=== PATIENT | female | born 1990 | race Caucasian/White ===

== ENCOUNTER 2020-10-15 07:26 | Outpatient (CLI) | payer MEDICAID ==
[2020-10-15 12:31] LABS: BASOPHILS % (AUTO) 0.3 %; EOSINOPHILS # (AUTO) 0.5 10^3/uL (0.0-0.7); EOSINOPHILS % (AUTO) 6.8 %; LYMPHOCYTES # (AUTO) 1.8 10^3/uL (1.5-3.5); LYMPHOCYTES % (AUTO) 26.9 %; MEAN CORPUSCULAR HEMOGLOBIN 28.2 pg (27.0-31.0); MEAN CORPUSCULAR HGB CONC 32.6 g/dL (32.0-36.0); MEAN CORPUSCULAR VOLUME 86.5 fL (81.0-99.0); MEAN PLATELET VOLUME 9.8 fL (7.9-10.8); MONOCYTES # (AUTO) 0.5 10^3/uL (0.0-1.0); MONOCYTES % (AUTO) 7.8 %; NEUTROPHILS % (AUTO) 57.9 %; PLT - PLATELET COUNT 365 10^3/uL (130-450); RED BLOOD COUNT 4.97 10^6/uL (4.20-5.40); RED CELL DISTRIBUTION WIDTH 12.6 % (12.0-15.0); WHITE BLOOD COUNT 6.8 x10^3/uL (4.8-10.8)
[2020-10-15 12:58] LABS: ALBUMIN 4.1 g/dL (3.2-5.5); ALBUMIN/GLOBULIN RATIO 1.5 (1.0-2.2); ALKALINE PHOSPHATASE 64 IU/L (42-121); ALT ALANINE AMINOTRANSFERASE 24 IU/L (10-60); AST ASPARTATE AMINOTRANSFERASE 17 IU/L (10-42); BILIRUBIN,TOTAL 0.5 mg/dL (0.2-1.0); BUN - BLOOD UREA NITROGEN 9 mg/dL (6-20); CARBON DIOXIDE - CO2 24 mmol/L (21-32); CHLORIDE 103 mmol/L (101-111); CHOL/HDL RATIO 6.7 (<4.4); CHOLESTEROL 234 mg/dL; CREATININE 0.7 mg/dL (0.4-1.0); GFR - MDRD 99 (>89); GLUCOSE 91 mg/dL (70-100); HDL CHOLESTEROL 35 mg/dL; LDL CHOLESTEROL,CALCULATED 166 mg/dL; LDL/HDL RATIO 4.7 (<4.4); POTASSIUM 3.8 mmol/L (3.5-5.0); SODIUM 136 mmol/L (135-145); TOTAL PROTEIN 6.9 g/dL (6.7-8.2); TRIGLYCERIDES 165 mg/dL; VLDL CHOLESTEROL 33 mg/dL
[2020-10-15 13:09] LABS: THYROID STIMULATING HORMONE 2.79 uIU/mL (0.34-5.60)
== END 2020-10-15 23:59 | disposition home or self-care (01) ==
LOC: LAB.WCP 07:26
PROVIDERS: ATTEND Physician Assistant Medical
DX: Z00.00 Encounter for general adult medical examination without abnormal findings (principal)
CPT/HCPCS: 36415; 80053; 80061; 83721; 84443; 85025

== ENCOUNTER 2021-01-12 07:51 | Outpatient (CLI) | payer MEDICAID ==
[2021-01-12 08:38] LABS: HCT - HEMATOCRIT 42.2 % (37.0-47.0); HGB - HEMOGLOBIN 14.2 g/dL (12.0-16.0); MEAN CORPUSCULAR HEMOGLOBIN 28.9 pg (27.0-31.0); MEAN CORPUSCULAR HGB CONC 33.6 g/dL (32.0-36.0); MEAN CORPUSCULAR VOLUME 85.8 fL (81.0-99.0); MEAN PLATELET VOLUME 9.4 fL (7.9-10.8); RED BLOOD COUNT 4.92 10^6/uL (4.20-5.40); RED CELL DISTRIBUTION WIDTH 12.5 % (12.0-15.0); WHITE BLOOD COUNT 6.7 x10^3/uL (4.8-10.8)
[2021-01-12 08:40] LABS: GTT GLUCOSE,FASTING 104 mg/dL (70-100)
[2021-01-12 09:01] LABS: THYROID STIMULATING HORMONE 1.95 uIU/mL (0.34-5.60)
[2021-01-12 09:07] LABS: ALBUMIN 4.1 g/dL (3.2-5.5); ALBUMIN/GLOBULIN RATIO 1.5 (1.0-2.2); ALKALINE PHOSPHATASE 58 IU/L (42-121); ALT ALANINE AMINOTRANSFERASE 21 IU/L (10-60); AST ASPARTATE AMINOTRANSFERASE 16 IU/L (10-42); BILIRUBIN,TOTAL 0.5 mg/dL (0.2-1.0); BUN - BLOOD UREA NITROGEN 13 mg/dL (6-20); CALCIUM 9.2 mg/dL (8.5-10.3); CARBON DIOXIDE - CO2 21 mmol/L (21-32); CHLORIDE 108 mmol/L (101-111); CHOLESTEROL 193 mg/dL; CREATININE 0.6 mg/dL (0.4-1.0); GFR - MDRD 118 (>89); GLUCOSE 102 mg/dL (70-100); HDL CHOLESTEROL 32 mg/dL; LDL CHOLESTEROL,CALCULATED 136 mg/dL; LDL/HDL RATIO 4.3 (<4.4); POTASSIUM 3.9 mmol/L (3.5-5.0); PROLACTIN 20.58 ng/mL; SODIUM 136 mmol/L (135-145); TOTAL PROTEIN 6.8 g/dL (6.7-8.2); TRIGLYCERIDES 125 mg/dL; VLDL CHOLESTEROL 25 mg/dL
[2021-01-12 09:30] LABS: FOLLICLE STIMULATING HORMONE 2.12 mIU/mL
[2021-01-12 12:35] LABS: ESTIMATED AVERAGE GLUCOSE 105 mg/dL (70-100); HEMOGLOBIN A1c% 5.3 % (4.27-6.07)
--- NOTE | 2021-01-12 16:51 | Ultrasound Report ---
PROCEDURE: Pelvic w/Transvaginal INDICATIONS: POLYCYSTIC OVARY SYNDROME, METABOLIC SYNDROME, PRE TECHNIQUE: Real-time scanning was performed of the pelvic organs, with image documentation. Additional endovagi nal scanning was necessary due to incomplete visualization of the adnexal and endometrial structures by transabdominal scanning. COMPARISON: None. FINDINGS: No pathologic free abdominal or pelvic fluid. Uterus: Uterus is normal in size at 9.0 x 4.3 x 5.3 cm. The endometrium measures 7.5 mm in combined thickness. There is a right fundal subserosal fibroid measuring 46 mm. Ovaries: Complex cyst within the right ovary measuring 20 mm. Ovaries otherwise within normal limits . No evidence of polycystic ovarian syndrome. IMPRESSION: 1. No evidence of polycystic ovarian syndrome. Solitary hemorrhagic cyst within the right ovary. 2. Uterine fibroid. Reviewed by: Bebeto Silverman MD on 01/12/2021 4:50 PM PDT Approved by: Bebeto Silverman MD on 01/12/2021 4:50 PM PDT Station ID: [id number]
== END 2021-01-12 07:52 | disposition home or self-care (01) ==
LOC: LAB 07:51 → DI 07:52
PROVIDERS: ATTEND Obstetrics & Gynecology
DX: N83.201 Unspecified ovarian cyst, right side (principal); D25.2 Subserosal leiomyoma of uterus; E28.2 Polycystic ovarian syndrome; E88.81 Metabolic syndrome and other insulin resistance; Z31.69 Encounter for other general counseling and advice on procreation; Z13.1 Encounter for screening for diabetes mellitus; Z68.41 Body mass index [BMI] 40.0-44.9, adult; Z13.220 Encounter for screening for lipoid disorders
CPT/HCPCS: 36415; 80053; 80061; 81599; 82306; 82670; 82950; 82951; 83001; 83036; 83721; 84146; 84443; 85027

== ENCOUNTER 2021-01-17 07:38 | Outpatient (CLI) | payer MEDICAID | END 2021-01-17 07:39 | disposition home or self-care (01) | LOC: LAB 07:38 | PROVIDERS: ATTEND Obstetrics & Gynecology | DX: E28.2 Polycystic ovarian syndrome (principal); E88.81 Metabolic syndrome and other insulin resistance; Z31.69 Encounter for other general counseling and advice on procreation | CPT/HCPCS: 36415; 83001 ==

== ENCOUNTER 2021-01-24 07:55 | Outpatient (CLI) | payer MEDICAID | END 2021-01-24 07:56 | disposition home or self-care (01) | LOC: LAB 07:55 | PROVIDERS: ATTEND Obstetrics & Gynecology | DX: E28.2 Polycystic ovarian syndrome (principal); E88.81 Metabolic syndrome and other insulin resistance; Z31.69 Encounter for other general counseling and advice on procreation | CPT/HCPCS: 36415; 81599; 83498 ==

== ENCOUNTER 2021-06-06 07:20 | Outpatient (CLI) | payer MEDICAID | END 2021-06-06 07:21 | disposition home or self-care (01) | LOC: LAB 07:20 | PROVIDERS: ATTEND Obstetrics & Gynecology | DX: Z13.21 Encounter for screening for nutritional disorder (principal) | CPT/HCPCS: 82306 ==

== ENCOUNTER 2023-02-07 12:01 | Outpatient (CLI) | payer MEDICAID, OTHER ==
[2023-02-07 13:38] LABS: THYROID STIMULATING HORMONE 1.26 uIU/mL (0.34-5.60)
[2023-02-07 13:44] LABS: PROLACTIN 5.53 ng/mL
[2023-02-07 14:07] LABS: FOLLICLE STIMULATING HORMONE 4.68 mIU/mL
[2023-02-08 12:09] LABS: ESTRADIOL 24.3 pg/mL (.); PROGESTERONE 0.1 ng/mL (.)
== END 2023-02-07 12:02 | disposition home or self-care (01) ==
LOC: LAB 12:01
PROVIDERS: ATTEND Obstetrics & Gynecology
DX: N92.1 Excessive and frequent menstruation with irregular cycle (principal)
CPT/HCPCS: 36415; 82397; 82670; 83001; 84144; 84146; 84403; 84443

== ENCOUNTER 2023-02-22 08:55 | Outpatient (CLI) | payer OTHER ==
[2023-02-22 11:33] LABS: BASOPHILS % (AUTO) 0.1 %; EOSINOPHILS # (AUTO) 0.6 10^3/uL (0.0-0.7); HCT - HEMATOCRIT 44.6 % (37.0-47.0); HGB - HEMOGLOBIN 14.5 g/dL (12.0-16.0); LYMPHOCYTES # (AUTO) 2.3 10^3/uL (1.5-3.5); LYMPHOCYTES % (AUTO) 30.3 %; MEAN CORPUSCULAR HEMOGLOBIN 28.4 pg (27.0-31.0); MEAN CORPUSCULAR HGB CONC 32.5 g/dL (32.0-36.0); MEAN CORPUSCULAR VOLUME 87.3 fL (81.0-99.0); MEAN PLATELET VOLUME 10.2 fL (7.9-10.8); MONOCYTES # (AUTO) 0.6 10^3/uL (0.0-1.0); MONOCYTES % (AUTO) 7.9 %; NEUTROPHILS # (AUTO) 4.1 10^3/uL (1.5-6.6); NEUTROPHILS % (AUTO) 53.6 %; PLT - PLATELET COUNT 374 10^3/uL (130-450); RED BLOOD COUNT 5.11 10^6/uL (4.20-5.40); RED CELL DISTRIBUTION WIDTH 12.6 % (12.0-15.0); WHITE BLOOD COUNT 7.6 x10^3/uL (4.8-10.8)
[2023-02-22 12:05] LABS: ALBUMIN 4.2 g/dL (3.2-5.5); ALBUMIN/GLOBULIN RATIO 1.4 (1.0-2.2); ALKALINE PHOSPHATASE 55 IU/L (42-121); ALT ALANINE AMINOTRANSFERASE 18 IU/L (10-60); AST ASPARTATE AMINOTRANSFERASE 16 IU/L (10-42); BILIRUBIN,TOTAL 0.5 mg/dL (0.2-1.0); BUN - BLOOD UREA NITROGEN 12 mg/dL (6-20); CALCIUM 9.3 mg/dL (8.5-10.3); CARBON DIOXIDE - CO2 26 mmol/L (21-32); CHLORIDE 105 mmol/L (101-111); CHOL/HDL RATIO 5.1 (<4.4); CHOLESTEROL 209 mg/dL; CREATININE 0.6 mg/dL (0.4-1.0); GFR - MDRD 117 (>89); GLUCOSE 95 mg/dL (70-100); HDL CHOLESTEROL 41 mg/dL; LDL CHOLESTEROL,CALCULATED 129 mg/dL; LDL/HDL RATIO 3.1 (<4.4); POTASSIUM 4.3 mmol/L (3.5-5.0); SODIUM 138 mmol/L (135-145); TOTAL PROTEIN 7.2 g/dL (6.7-8.2); TRIGLYCERIDES 193 mg/dL; VLDL CHOLESTEROL 39 mg/dL
[2023-02-22 12:09] LABS: THYROID STIMULATING HORMONE 1.82 uIU/mL (0.34-5.60)
[2023-02-22 12:30] LABS: ESTIMATED AVERAGE GLUCOSE 108 mg/dL (70-100); HEMOGLOBIN A1c% 5.4 % (4.27-6.07)
== END 2023-02-22 08:56 | disposition home or self-care (01) ==
LOC: LAB.N 08:55
PROVIDERS: ATTEND Physician Assistant
DX: E88.81 Metabolic syndrome and other insulin resistance (principal); E78.5 Hyperlipidemia, unspecified; E55.9 Vitamin D deficiency, unspecified
CPT/HCPCS: 36415; 80053; 80061; 82306; 83036; 83721; 84443; 85025

== ENCOUNTER 2023-03-22 09:01 | Outpatient (CLI) | payer OTHER | END 2023-03-22 09:02 | disposition home or self-care (01) | LOC: LAB.N 09:01 | PROVIDERS: ATTEND Obstetrics & Gynecology | DX: N97.0 Female infertility associated with anovulation (principal) | CPT/HCPCS: 36415; 84144 ==